=== PATIENT | male | born 1960 | race African-American/Black ===

== ENCOUNTER 2018-04-13 12:59 | Inpatient (IN) | payer OTHER ==
[~2018-04-13 12:59] MED LIST: CEFAZOLIN 1 GM INJ; ETOMIDATE 20 MG INJ; LIDOCAINE 2% (SDV) 5 ML INJ; ONDANSETRON 4 MG INJ; SUCCINYLCHOLINE CHLORIDE 100 MG/5 ML SYG IV
[2018-04-13] MEDS: LACTATED RINGER'S 1L BAG IV* (13:30)
[2018-04-13] MEDS: CEFAZOLIN 2 GM/50 ML (PMX) 50 ML IVPB (13:30)
[2018-04-13] MEDS ORDERED: GELATIN SIZE 100 SPONGE (13:44)
[2018-04-13] MEDS ORDERED: ROCURONIUM 50 MG INJ (14:10)
[2018-04-13] MEDS ORDERED: HYDROmorphONE 2 MG/ML SYG (14:10)
[2018-04-13] MEDS ORDERED: SUCCINYLCHOLINE CHLORIDE 100 MG/5 ML SYG IV (14:10)
[2018-04-13] MEDS ORDERED: FENTAnyl 50 MCG/ML VIAL (14:10)
[2018-04-13] MEDS ORDERED: hydrALAzine 20 MG INJ (14:25)
[2018-04-13] MEDS ORDERED: PROPOFOL 100 ML (14:54)
[2018-04-13] MEDS ORDERED: DEXAMETHASONE 4 MG/ML 1 ML INJ (15:23)
[2018-04-13] MEDS ORDERED: ONDANSETRON 4 MG INJ (15:23)
[2018-04-13] MEDS ORDERED: PHENYLephrine (100 MCG/ML) 5ML SYG (15:40)
[2018-04-13] MEDS: BUPIVACAINE 0.5%/EPI (SDV) 30 ML INJ (15:42)
[2018-04-13] MEDS ORDERED: PHENYLephrine 10 MG INJ (15:43)
[2018-04-13] MEDS: POLYMYXIN/BACITRACIN 1L IRRIG (15:43)
[2018-04-13] MEDS: THROMBIN 5000 UNIT VIAL (16:09)
[2018-04-13] MEDS ORDERED: SUGAMMADEX SODIUM 200 MG/2 ML VIAL IV (16:49)
[2018-04-13] MEDS: BETAMET NA PHOS/AC(6 MG/ML) 5ML INJ (16:54)
[2018-04-13] MEDS ORDERED: EPHEDrine SULFATE 50 MG/5 ML SYG IV (17:00)
[2018-04-13] MEDS ORDERED: LABETALOL HCL 20MG INJ IV (17:00)
[2018-04-13] MEDS ORDERED: MEPERIDINE 25 MG INJ IV (17:00)
[2018-04-13] MEDS ORDERED: DIPHENHYDRAMINE 50 MG INJ IV (17:00)
[2018-04-13] MEDS ORDERED: HYDROmorphONE (0.2 MG/ML) 10ML SYG IV (17:00)
[2018-04-13] MEDS ORDERED: ONDANSETRON 4 MG INJ IV ×2 (17:00→19:00)
[2018-04-13] MEDS ORDERED: hydrALAzine 20 MG INJ IV (17:00)
[2018-04-13] MEDS: HYDROmorphONE (0.2 MG/ML) 10ML SYG IV ×2 (18:06→18:14)
[2018-04-13] MEDS ORDERED: NACL 0.9% 3 ML SYG IV (19:00)
[2018-04-13] MEDS ORDERED: PROCHLORPERAZINE 10 MG TAB PO (19:00)
[2018-04-13] MEDS ORDERED: NALOXONE (0.4 MG/ML) INJ IV (19:00)
[2018-04-13] MEDS ORDERED: ACETAMINOPHEN 325 MG TAB PO (19:00)
[2018-04-14] MEDS: CEFAZOLIN 1 GM/50 ML (PMX) 50 ML IVPB ×3 (00:08→11:28)
[2018-04-14] MEDS: HYDROmorphONE 0.5 MG/0.5 ML SYG IV (03:47)
[2018-04-14 05:30] LABS: HEMATOCRIT 35.8 % (42.0-52.0); HEMOGLOBIN 12.1 g/dl (14.0-18.0)
[2018-04-14 05:55] LABS: ANION GAP 14 (8-16); BLOOD UREA NITROGEN 16 mg/dl (7-20); CALCIUM 9.3 mg/dl (8.4-10.2); CARBON DIOXIDE 29 mmol/L (21-31); CHLORIDE 102 mmol/L (97-110); CREATININE 0.81 mg/dl (0.61-1.24); GLUCOSE 155 mg/dl (70-220); POTASSIUM 3.8 mmol/L (3.5-5.1); SODIUM 141 mmol/L (135-144)
[2018-04-14] MEDS: HYDROCODONE/APAP (5/325) TAB PO ×3 (06:01→14:24)
[2018-04-14] MEDS: VALSARTAN 160 MG TAB PO (09:55)
[2018-04-14] MEDS: AMLODIPINE 10 MG TAB PO (09:55)
[2018-04-14] MEDS: SALMETEROL/FLUTICASONE 250/50 INHA INH (09:56)
[2018-04-14] MEDS: TIOTROPIUM 18 MCG CAPSULE INHA DEV INH (09:56)
[2018-04-14] MEDS ORDERED: traZODone 50 MG TAB PO (21:00)
== END 2018-04-14 16:15 | disposition home or self-care (01) | DRG 520 ==
LOC: REC 12:59 → MS1 20:00
PROVIDERS: Orthopaedic Surgery
PROC: 01NB0ZZ Release Lumbar Nerve, Open Approach (ICD-10-PCS; principal; 2018-04-13 14:09)
PROC: 0SB20ZZ Excision of Lumbar Vertebral Disc, Open Approach (ICD-10-PCS; 2018-04-13 14:09)
DX: M43.16 Spondylolisthesis, lumbar region (principal); M51.16 Intervertebral disc disorders with radiculopathy, lumbar region; M48.061 Spinal stenosis, lumbar region without neurogenic claudication
CPT/HCPCS: 72100; 80048; 82962; 85014; 85018; 86900; 86901; 88304; 97116; 97161